=== PATIENT | female | born 2000 | race Caucasian/White ===

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

== ENCOUNTER 2020-01-25 07:49 | Observation (INO) ==
[2020-01-25] MEDS ORDERED: NS 0.9% 1000 ml BAG 1,000 ML IV ONE ×2 (08:11→11:06)
[2020-01-25] MEDS ORDERED: Lorazepam PYXIS KEY PRN ×3 (08:12→16:56)
[2020-01-25] MEDS ORDERED: LORazepam 2 mg VIAL 1 ml IV PUSH ONE ×2 (08:12→16:46)
[2020-01-25] MEDS ORDERED: Prochlorperazine 5 mg/ml 2 ml VIAL (10 mg) IV ONE (08:13)
[2020-01-25 08:46] LABS: ABS Basophils 0.1 10^3/ul (0-0.2); ABS Eosinophils 0.1 10^3/ul (0-0.6); ABS Lymphocytes 2.4 10^3/ul (1.0-4.8); ABS Monocytes 0.5 10^3/ul (0-0.8); ABS Neutrophils 3.7 10^3/ul (1.5-7.7); Eosinophil % 1.5 %; Hematocrit 41 % (35-47); Hemoglobin 13.9 g/dL (12.0-16.0); Lymphocyte % 35.2 %; Mean Corpuscular HGB Conc 34 g/dL (31-36); Mean Corpuscular Hemoglobin 29 pg (27-31); Mean Corpuscular Volume 86 fL (80-97); Mean Platelet Volume 7.3 fL (7.4-10.4); Platelet Count 297 10^3/uL (150-450); Red Blood Count 4.79 10^6 /uL (3.70-4.87); Red Cell Distribution Width 14 % (10-15); White Blood Count 6.7 10^3/uL (3.5-10.8)
[2020-01-25 08:58] LABS: ALT 11 U/L (7-52); AST 19 U/L (13-39); Albumin 4.3 g/dL (3.2-5.2); Albumin/Globulin Ratio 1.4 (1-3); Alkaline Phosphatase 75 U/L (34-104); Anion Gap 12 mmol/L (2-11); Blood Urea Nitrogen 15 mg/dL (6-24); CO2 Carbon Dioxide 21 mmol/L (22-32); Calcium 9.5 mg/dL (8.6-10.3); Chloride 108 mmol/L (101-111); EGFR African American 98.1 (>60); EGFR Non-African American 81.1 (>60); Globulin 3.1 g/dL (2-4); Glucose 125 mg/dL (70-100); Lipase 49 U/L (11.0-82.0); Potassium 3.4 mmol/L (3.5-5.0); Sodium 141 mmol/L (135-145); Total Protein 7.4 g/dL (6.4-8.9)
[2020-01-25 09:04] LABS: HCG Pregnancy < 0.60 mIU/mL
[2020-01-25] MEDS ORDERED: Al Hydrox/Mg Hydrox/Simet LIQ 30 ML UDC PO ONE (09:32)
[2020-01-25] MEDS ORDERED: Ondansetron 4 mg VIAL 2 MG/ML 2 ml VIAL IV ONE ×2 (09:56→15:06)
[2020-01-25] MEDS ORDERED: Ondansetron 4 mg VIAL 2 MG/ML 2 ml VIAL ONE (10:00)
[2020-01-25] MEDS ORDERED: diPHENhydraMINE IV 50 MG/ML 1 ml VIAL (BENADRYL) IV ONE (11:06)
[2020-01-25] MEDS ORDERED: Metoclopramide 5 MG/ML VIAL (10 mg) IV SLOW PU ONE (13:09)
[2020-01-25] MEDS ORDERED: Metoclopramide 5 MG/ML VIAL (10 mg) ONE (13:13)
[2020-01-25] MEDS ORDERED: Famotidine IV 10 MG/ML 2 ml VIAL (20 mg) IV SLOW PU PRN (16:54)
[2020-01-25] MEDS ORDERED: Metoclopramide 5 MG/ML VIAL (10 mg) IV SLOW PU PRN (16:56)
[2020-01-25] MEDS ORDERED: LORazepam 2 mg VIAL 1 ml IV PUSH PRN (16:56)
[2020-01-25] MEDS ORDERED: Ondansetron 4 mg VIAL 2 MG/ML 2 ml VIAL IV PRN (16:57)
[2020-01-25 17:28] LABS: Urine Appearance Cloudy; Urine Bilirubin Negative (Negative); Urine Blood 2+ (Negative); Urine Color Yellow; Urine Glucose 1+(50 mg/dL) (Negative); Urine Ketones 1+ (Negative); Urine Nitrite Negative (Negative); Urine Protein Negative (Negative); Urine Urobilinogen Negative (Negative)
[2020-01-25 17:35] LABS: Urine Bacteria 1+ (Absent); Urine Red Blood Cell 2+(6-10/hpf) (Absent); Urine Squamous Epithelial Cell Present (Absent); Urine White Blood Cell Trace(0-5/hpf) (Absent)
[2020-01-25 17:46] LABS: Urine Benzodiazepine Screen None Detected (None Detect); Urine Cannabinoids Screen Presumptive Positive (None Detect); Urine Opiates Screen None Detected (None Detect)
[2020-01-25 18:05] LABS: Magnesium 2.2 mg/dL (1.9-2.7)
[2020-01-25] MEDS: D5W 1/2 NS 1000 ml BAG 1,000 ML IV SCH (20:49)
[2020-01-26] MEDS ORDERED: Lorazepam PYXIS KEY PRN (07:45)
[2020-01-26] MEDS ORDERED: LORazepam 2 mg VIAL 1 ml IV PUSH ONE (07:46)
[2020-01-26] MEDS ORDERED: LEVONORGESTREL ETHINYL ESTRAD PO SCH (09:00)
[2020-01-26] MEDS: D5W 1/2 NS 1000 ml BAG 1,000 ML IV SCH (10:01)
[2020-01-26 12:37] LABS: TSH Ultra Thyroid Stim Horm 1.14 mcIU/mL (0.34-5.60)
[2020-01-26 16:28] VITALS: BP 123/80
== END 2020-01-26 16:40 | disposition home or self-care (01) ==
LOC: ED 07:49 → MED 07:49
PROVIDERS: ADMIT Internal Medicine; ATTEND Internal Medicine

== ENCOUNTER 2020-01-27 08:44 | Inpatient (IN) ==
[2020-01-27] MEDS ORDERED: NS 0.9% 1000 ml BAG 1,000 ML IV ONE (09:05)
[2020-01-27] MEDS ORDERED: Metoclopramide 5 MG/ML VIAL (10 mg) IV ONE (09:05)
[2020-01-27] MEDS ORDERED: diPHENhydraMINE IV 50 MG/ML 1 ml VIAL (BENADRYL) IV ONE (09:05)
[2020-01-27] MEDS ORDERED: LORazepam 2 mg VIAL 1 ml IV PUSH ONE (09:06)
[2020-01-27] MEDS ORDERED: Lorazepam PYXIS KEY PRN (09:06)
[2020-01-27 10:08] LABS: ABS Lymphocytes 1.4 10^3/ul (1.0-4.8); ABS Monocytes 0.6 10^3/ul (0-0.8); ABS Neutrophils 7.8 10^3/ul (1.5-7.7); Eosinophil % 0.5 %; Hematocrit 40 % (35-47); Hemoglobin 13.7 g/dL (12.0-16.0); Lymphocyte % 14.4 %; Mean Corpuscular HGB Conc 34 g/dL (31-36); Mean Corpuscular Hemoglobin 29 pg (27-31); Mean Corpuscular Volume 84 fL (80-97); Mean Platelet Volume 7.1 fL (7.4-10.4); Platelet Count 280 10^3/uL (150-450); Red Blood Count 4.77 10^6 /uL (3.70-4.87); Red Cell Distribution Width 14 % (10-15); White Blood Count 9.9 10^3/uL (3.5-10.8)
[2020-01-27 10:24] LABS: ALT 12 U/L (7-52); AST 17 U/L (13-39); Albumin 4.3 g/dL (3.2-5.2); Albumin/Globulin Ratio 1.4 (1-3); Alkaline Phosphatase 71 U/L (34-104); Anion Gap 13 mmol/L (2-11); BUN/Creatinine Ratio 11.4 (8-20); Blood Urea Nitrogen 10 mg/dL (6-24); C Reactive Protein 1.01 mg/L (<8.01); CO2 Carbon Dioxide 18 mmol/L (22-32); Calcium 9.4 mg/dL (8.6-10.3); Chloride 106 mmol/L (101-111); EGFR African American 98.1 (>60); EGFR Non-African American 81.1 (>60); Glucose 138 mg/dL (70-100); Lipase 24 U/L (11.0-82.0); Magnesium 1.9 mg/dL (1.9-2.7); Sodium 137 mmol/L (135-145); Total Protein 7.3 g/dL (6.4-8.9)
[2020-01-27 10:29] LABS: HCG Pregnancy < 0.60 mIU/mL
[2020-01-27] MEDS ORDERED: Potassium Chloride LIQUID 20 MEQ/15 ML LIQUID PO ONE (10:30)
[2020-01-27 10:35] LABS: Urine Benzodiazepine Screen Presumptive Positive (None Detect); Urine Cannabinoids Screen Presumptive Positive (None Detect); Urine Opiates Screen None Detected (None Detect)
[2020-01-27] MEDS: KCL 20 MEQ/100 ML IVPREMIX 20 MEQ/100 ML BAG IV SCH ×2 (11:48→11:49)
[2020-01-27] MEDS ORDERED: Ketorolac *IM* INJ 60 MG/2 ML VIAL IM ONE (12:09)
[2020-01-27] MEDS ORDERED: Al Hydrox/Mg Hydrox/Simet LIQ 30 ML UDC PO PRN (20:16)
[2020-01-27] MEDS: AVIANE PO SCH (20:37)
[2020-01-28] MEDS ORDERED: Ondansetron ODT 4 mg TAB 4 MG TAB PO PRN (09:31)
[2020-01-28] MEDS ORDERED: Ondansetron ODT 4 mg TAB 4 MG TAB ONE ×2 (09:38→09:40)
[2020-01-28] MEDS: Vitamin THERAPEUTIC TAB PO SCH (09:42)
[2020-01-28] MEDS ORDERED: Metoclopramide 5 MG/ML VIAL (10 mg) IV ONE (10:09)
[2020-01-28] MEDS ORDERED: NS 0.9% 1000 ml BAG 1,000 ML IV ONE (10:29)
[2020-01-28] MEDS ORDERED: Lorazepam PYXIS KEY PRN (13:40)
[2020-01-28] MEDS ORDERED: LORazepam 2 mg VIAL 1 ml IV PUSH PRN (13:40)
[2020-01-28] MEDS ORDERED: LORazepam 2 mg VIAL 1 ml IV PUSH ONE (13:42)
[2020-01-28] MEDS: AVIANE PO SCH (20:29)
[2020-01-29] MEDS: Vitamin THERAPEUTIC TAB PO SCH (10:25)
[2020-01-29] MEDS: AVIANE PO SCH (20:24)
[2020-01-30] MEDS: Vitamin THERAPEUTIC TAB PO SCH (08:29)
[2020-01-30 08:51] VITALS: BP 121/73
== END 2020-01-30 10:55 | disposition home or self-care (01) | DRG 756 ==
LOC: ED 08:44 → BSU 15:36 → ED 18:06
PROVIDERS: ADMIT Psychiatry & Neurology Psychiatry; ATTEND Psychiatry & Neurology Psychiatry